=== PATIENT | male | born 1955 | race Caucasian/White ===

== ENCOUNTER → 2016-11-22 | Outpatient (CLI) | payer OTHER | END | disposition home or self-care (01) | LOC: CFH 08:38 | PROVIDERS: ATTEND Neurological Surgery | DX: S12.000A Unspecified displaced fracture of first cervical vertebra, initial encounter for closed fracture (principal); S12.401A Unspecified nondisplaced fracture of fifth cervical vertebra, initial encounter for closed fracture; S22.029A Unspecified fracture of second thoracic vertebra, initial encounter for closed fracture; S22.42XD Multiple fractures of ribs, left side, subsequent encounter for fracture with routine healing; M50.30 Other cervical disc degeneration, unspecified cervical region; M48.02 Spinal stenosis, cervical region; Y99.8 Other external cause status; X58.XXXA Exposure to other specified factors, initial encounter; Y92.89 Other specified places as the place of occurrence of the external cause; Y93.89 Activity, other specified | CPT/HCPCS: 72125 ==

== ENCOUNTER → 2017-09-20 | Outpatient (CLI) | payer OTHER ==
[~2017-09-20] MED LIST: GADOBUTROL 7.5 MMOL/7.5 ML PFS ONE
== END | disposition home or self-care (01) ==
LOC: RAD 11:59
PROVIDERS: ATTEND Neurological Surgery
DX: D32.0 Benign neoplasm of cerebral meninges (principal); G93.0 Cerebral cysts
CPT/HCPCS: 70553; A9585

== ENCOUNTER 2018-10-19 11:01 | Outpatient (CLI) | payer OTHER ==
[2018-10-19] MEDS ORDERED: GADOBUTROL 7.5 MMOL/7.5 ML PFS ONE (11:30)
== END 2018-10-19 23:59 | disposition home or self-care (01) ==
LOC: RAD 11:01
PROVIDERS: ATTEND Neurological Surgery
DX: D32.0 Benign neoplasm of cerebral meninges (principal); E34.8 Other specified endocrine disorders
CPT/HCPCS: 70553; A9585